=== PATIENT | female | born 1945 | race African-American/Black ===

== ENCOUNTER → 2018-09-23 | Outpatient (CLI) | payer OTHER, BC ==
[~2018-09-23] MED LIST: AZOR 10-40 MG1 EACH PO; CATAPRES-TTS 10.1 MG TD; CIPROFLOXACIN500 M1 PO; CLONIDINE0.1 PO; COREG; COREG CR40 MG PO; DIOVAN; DIOVAN HCT 3201 EAC1 PO; FLEXERIL PO; GLUCOTROL5 MG PO; JANUMET 50-1,01 EACH PO; MAXZIDE-25 MG1 EACH PO; NAPROSYN500 MG PO; VICODIN 5-5001 EACH PO
== END ==
LOC: RAD 14:55
DX: I70.0 Atherosclerosis of aorta (principal); M47.814 Spondylosis without myelopathy or radiculopathy, thoracic region

== ENCOUNTER 2018-09-28 15:44 | Emergency (ER) | payer OTHER, BC ==
[~2018-09-28] VITALS: Ht 172.7 cm; Wt 79.4 kg
[2018-09-28 17:27] LABS: ABSOLUTE NEUTROPHILS 9.1 thou/uL (1.4-8.2); BASOPHILS 0.4 % (0.0-2.0); EOSINOPHILS 0.2 % (0.0-3.0); HEMOGLOBIN 10.8 gm/dL (12.0-15.0); LYMPHOCYTES 10.2 % (24.0-44.0); MCH 29.5 pg (26.0-34.0); MCHC 33.8 g/dL (28.0-37.0); MCV 87.5 fL (80.0-100.0); MONOCYTES 9.2 % (1.0-8.0); PLATELET COUNT 280 thou/uL (150-400); RBC 3.65 mil/uL (4.20-5.00); RDW 13.5 % (10.5-14.5); WBC 11.3 thou/uL (4.0-11.0)
[2018-09-28 17:37] LABS: ANION GAP 11 mmol/L (7-16); BUN 30 mg/dL (7-18); CALCIUM 9.2 mg/dL (8.5-10.1); CHLORIDE 96 mmol/L (98-107); CO2 28 mmol/L (21-32); GLUCOSE 198 mg/dL (74-106); POTASSIUM 3.8 mmol/L (3.5-5.1); SODIUM 135 mmol/L (136-145)
[2018-09-28 17:46] LABS: ALBUMIN 3.1 g/dL (3.4-5.0); SGOT 17 U/L (15-37); SGPT 13 U/L (30-65); TOTAL PROTEIN 8.8 g/dL (6.4-8.2); TROPONIN-I <0.06 ng/mL (<0.06)
[2018-09-28] MEDS ORDERED: TESSALON PERLE100 MG PO (21:19)
[2018-09-28] MEDS ORDERED: VENTOLIN HFA 1818 GM INH (21:19)
[2018-09-28] MEDS ORDERED: ZITHROMAX250 MG PO (21:19)
[2018-09-28] MEDS ORDERED: HYDROCODONE-AP1 EAC6 PO (21:19)
[2018-09-28 21:33] VITALS: BP 187/83
--- NOTE | 2018-09-29 17:06 | EKG ---
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 : 1945 Requested By: Aurelia España Order Number: [id number] MD: Alvaro Sy Measurements Intervals [place] Rate: 104 P: 48 [place]: 199 QRS: -20 QRSD: 71 T: 96 QT: 340 QTc: 448 Interpretive Statements Sinus tachycardia Borderline left axis deviation Anteroseptal infarct, old Borderline repolarization abnormality Compared to ECG 10/14/2006 08:18:31 No significant change was found Electronically Signed On 09-29-2018 17:05:58 CDT by Alvaro Sy [email or web address] ��������������������������������������������� <ELECTRONICALLY SIGNED> ���������������������������������������� By: Alvaro Sy MD, [facility] ��������������������������������������������� 09/29/18 1705 1725 1725 Alvaro Sy MD, FAC /EPI
== END 2018-09-28 21:34 | disposition home or self-care (01) ==
LOC: ER 15:44
PROVIDERS: Physician Assistant
DX: J18.8 Other pneumonia, unspecified organism (principal); E11.9 Type 2 diabetes mellitus without complications; I10 Essential (primary) hypertension; Z95.5 Presence of coronary angioplasty implant and graft; Z88.2 Allergy status to sulfonamides

== ENCOUNTER → 2018-11-11 | Outpatient (CLI) | payer OTHER, BC ==
[~2018-11-11] MED LIST changes: +HYDROCODONE-AP1 EAC6 PO; +TESSALON PERLE100 MG PO; +VENTOLIN HFA 1818 GM INH; +ZITHROMAX250 MG PO
== END ==
LOC: CAT 10:33
DX: J47.9 Bronchiectasis, uncomplicated (principal); J98.4 Other disorders of lung; I70.0 Atherosclerosis of aorta; I25.10 Atherosclerotic heart disease of native coronary artery without angina pectoris; E04.2 Nontoxic multinodular goiter; K80.20 Calculus of gallbladder without cholecystitis without obstruction; Z88.0 Allergy status to penicillin

== ENCOUNTER → 2020-08-03 | Outpatient (CLI) | payer OTHER, BC | LOC: SJCVC 14:01 | PROVIDERS: ATTEND Internal Medicine Cardiovascular Disease | DX: R94.31 Abnormal electrocardiogram [ECG] [EKG] (principal); I25.10 Atherosclerotic heart disease of native coronary artery without angina pectoris; E78.00 Pure hypercholesterolemia, unspecified; I65.23 Occlusion and stenosis of bilateral carotid arteries; E11.22 Type 2 diabetes mellitus with diabetic chronic kidney disease; I12.9 Hypertensive chronic kidney disease with stage 1 through stage 4 chronic kidney disease, or unspecified chronic kidney disease; N18.30 Chronic kidney disease, stage 3 unspecified; E07.9 Disorder of thyroid, unspecified; E11.51 Type 2 diabetes mellitus with diabetic peripheral angiopathy without gangrene; Z79.899 Other long term (current) drug therapy; Z88.2 Allergy status to sulfonamides; Z88.1 Allergy status to other antibiotic agents ==

== ENCOUNTER → 2020-10-24 | Outpatient (CLI) | payer OTHER, BC | LOC: RAD 11:26 | PROVIDERS: ATTEND Neuromusculoskeletal Medicine & OMM | DX: Z77.090 Contact with and (suspected) exposure to asbestos (principal) ==

== ENCOUNTER → 2021-02-20 | Outpatient (CLI) | payer OTHER, BC | LOC: SJCVCIMAG 01-25 07:26 | PROVIDERS: ATTEND Internal Medicine Cardiovascular Disease | DX: I49.3 Ventricular premature depolarization (principal); I25.10 Atherosclerotic heart disease of native coronary artery without angina pectoris; E78.5 Hyperlipidemia, unspecified; E11.9 Type 2 diabetes mellitus without complications; I10 Essential (primary) hypertension; Z88.2 Allergy status to sulfonamides; Z79.899 Other long term (current) drug therapy; Z86.73 Personal history of transient ischemic attack (TIA), and cerebral infarction without residual deficits ==